=== PATIENT | female | born 1950 | race Caucasian/White ===

== ENCOUNTER → 2020-08-17 | Outpatient (CLI) | payer MEDICARE, OTHER ==
[~2020-08-17] VITALS: Ht 162.6 cm; Wt 77.3 kg
[~2020-08-17] MED LIST: LIDOCAINE 1% INJ 20 ML 20 ML VIAL INJ ONE; LIDOCAINE 1% INJ 20 ML 20 ML VIAL ONE
--- NOTE | 2020-08-17 11:47 | Diagnostic Imaging Report ---
INDICATION: Left thyroid nodule. Patient presented for ultrasound-guided fine needle aspiration. Patient brought to the procedure room and placed on table in a supine position. Ultrasound imaging of the left neck was performed to evaluate appropriate entry site. Left neck was then prepped and draped in usual sterile fashion. A small amount of 1% lidocaine was utilized for local anesthesia. Total of 4 passes were made into the solid hypoechoic dominant nodule in the left lobe of the thyroid utilizing 25-gauge needles and fine-needle aspiration technique. A single pass was made into the nodule with a Rotex needle and Rotex biopsy was performed. Patient tolerated procedure well and left the department in stable condition. IMPRESSION: Successful ultrasound-guided fine needle aspiration and Rotex biopsy of a dominant left lobe solid thyroid nodule. Pathology results are currently pending. Dictated by: Dictated on workstation # [id number]
== END ==
LOC: RAD 10:17
PROVIDERS: ATTEND Otolaryngology Otolaryngology/Facial Plastic Surgery
DX: E04.1 Nontoxic single thyroid nodule (principal)